=== PATIENT | female | born 1955 | race Hispanic/Latino ===

== ENCOUNTER → 2018-05-21 | Outpatient (CLI) | payer OTHER | END | disposition home or self-care (01) | LOC: RAH 08:23 | PROVIDERS: ATTEND Internal Medicine | DX: Z12.31 Encounter for screening mammogram for malignant neoplasm of breast (principal); Z76.89 Persons encountering health services in other specified circumstances | CPT/HCPCS: 77067 ==

== ENCOUNTER → 2020-04-29 | Outpatient (CLI) | payer OTHER | END | disposition home or self-care (01) | LOC: RAH 08:58 | PROVIDERS: ATTEND Family Medicine | DX: Z12.31 Encounter for screening mammogram for malignant neoplasm of breast (principal) | CPT/HCPCS: 77067 ==

== ENCOUNTER → 2022-06-05 | Outpatient (CLI) | payer OTHER | END | disposition home or self-care (01) | LOC: RAH 08:36 | PROVIDERS: ATTEND Internal Medicine | DX: Z12.31 Encounter for screening mammogram for malignant neoplasm of breast (principal) | CPT/HCPCS: 77067 ==

== ENCOUNTER → 2022-07-18 | Outpatient (CLI) | payer OTHER ==
[~2022-07-18] MED LIST: IOHEXOL 350 MG/ML 100ML INFUS..BTL IV ONE
== END | disposition home or self-care (01) ==
LOC: RAH 08:24
PROVIDERS: ATTEND Internal Medicine Cardiovascular Disease
DX: I20.9 Angina pectoris, unspecified (principal)
CPT/HCPCS: 75574; Q9967

== ENCOUNTER → 2024-05-25 | Outpatient (CLI) | payer OTHER ==
[2024-05-25 09:53] LABS: ALBUMIN 3.6 g/dL (3.5-5.0); BILIRUBIN,TOTAL 0.4 mg/dL (0.2-1.0); POTASSIUM 4.1 mmol/L (3.5-5.1); TOTAL PROTEIN, SERUM 7.3 g/dL (6.0-8.3)
== END | disposition home or self-care (01) ==
LOC: RAH 08:59
PROVIDERS: ATTEND Family Medicine
DX: I10 Essential (primary) hypertension (principal); R11.0 Nausea; K66.1 Hemoperitoneum
CPT/HCPCS: 36415; 80053; Q9967

== ENCOUNTER → 2024-05-26 | Outpatient (CLI) | payer OTHER ==
--- NOTE | 2024-05-26 11:20 | HMCIMG ---
CT ABDOMEN W/WO 3 PHASE REASON: OTHER CHRONIC PANCREATITIS, PANCREATIC PROTOCOL COMPARISON: None. TECHNIQUE: Images are obtained from lung bases through the iliac crests before, during and after bolus IV contrast infusion. Contrast volume was 100 cc Omnipaque [id number]. FINDINGS: Lung bases are clear. There are no focal liver lesions. There are normal-appearing kidneys.. Spleen appears unremarkable. The gallbladder appears normal as well. There is a well-circumscribed cyst in the head of the pancreas measuring 1.4 x 1.5 cm. A sharply marginated and imperceptible in thickness. There are no associated solid or soft tissue components. There is no abnormal contrast enhancement. The pancreas appears otherwise normal. There are no calcifications to suggest chronic pancreatitis. The pancreatic duct is nondilated dilated. The pancreas does not appear enlarged or atrophic. Bowel loops appear unremarkable. The appendix was not separately identified. There is no evidence of free fluid or intraperitoneal air. There are no focal fluid collections. There is calcification of the aorta without evidence of aneurysm or stenosis. There is no retroperitoneal lymphadenopathy. The anterior abdominal wall is intact. Osseous structures appear unremarkable. IMPRESSION: 1. 1.5 cm simple appearing cyst in the head of the pancreas, no abnormal contrast enhancement and there are no soft tissue component to suggest neoplasm. 2. Otherwise normal-appearing pancreas, there is no CT evidence of chronic pancreatitis 3. Otherwise unremarkable pre and postcontrast CT abdomen. CT was performed with one or more following dose reduction techniques: automated exposure control, adjustment of the mA and kv according to patient's size, or use of a iterative reconstruction technique.
== END | disposition home or self-care (01) ==
LOC: RAH 07:31
PROVIDERS: ATTEND Family Medicine
DX: K86.2 Cyst of pancreas (principal); K86.1 Other chronic pancreatitis; I70.0 Atherosclerosis of aorta
CPT/HCPCS: 74170; Q9967